=== PATIENT | male | born 1950 | race Two or more races ===

== ENCOUNTER 2017-10-14 07:38 | Day surgery (SDC) | payer BC ==
[~2017-10-14 07:38] MED LIST: CEFAZOLIN 2 GM/50 ML (PMX) 50 ML IVPB; SOD CHLORIDE 0.9% 1,000 ML IV
[2017-10-14 09:01] LABS: ADD MAN DIFF? NO
[2017-10-14 09:03] LABS: BASOPHILS % 0.3 % (0.0-2.0); EOSINOPHILS % 0.4 % (0.0-7.0); HEMATOCRIT 45.6 % (42.0-52.0); HEMOGLOBIN 15.5 g/dl (14.0-18.0); LYMPHOCYTES # 1.5 10^3/ul (0.8-2.9); LYMPHOCYTES % 22.2 % (15.0-51.0); MEAN CORPUSCULAR HEMOGLOBIN 29.5 pg (29.0-33.0); MEAN CORPUSCULAR VOLUME 86.7 fl (82.0-101.0); MEAN PLATELET VOLUME 8.8 fl (7.4-10.4); MONOCYTE # 0.4 10^3/ul (0.3-0.9); MONOCYTES % 6.5 % (0.0-11.0); NEUTROPHIL # 4.7 10^3/ul (1.6-7.5); NEUTROPHILS % 69.6 % (39.0-77.0); PLATELET COUNT 294 10^3/UL (140-415); RED BLOOD COUNT 5.26 10^6/ul (4.70-6.10)
[2017-10-14 09:03] LABS: WHITE BLOOD COUNT 6.8 10^3/ul (4.8-10.8)
[2017-10-14 09:21] LABS: ALANINE AMINOTRANSFERASE 39 IU/L (13-69); ALBUMIN 4.6 g/dl (3.3-4.9); ALBUMIN/GLOBULIN RATIO 1.48; ALKALINE PHOSPHATASE 68 IU/L (42-121); ANION GAP 16 (8-16); ASPARTATE AMINO TRANSFERASE 32 IU/L (15-46); BILIRUBIN,INDIRECT 0.5 mg/dl (0-1.1); BILIRUBIN,TOTAL 0.5 mg/dl (0.2-1.3); CARBON DIOXIDE 31 mmol/L (21-31); CHLORIDE 103 mmol/L (97-110); GLUCOSE 112 mg/dl (70-220); TOTAL PROTEIN 7.7 g/dl (6.1-8.1)
[2017-10-14 09:25] LABS: BLOOD UREA NITROGEN 19 mg/dl (7-20); CALCIUM 9.5 mg/dl (8.4-10.2); CREATININE 1.08 mg/dl (0.61-1.24); POTASSIUM 4.9 mmol/L (3.5-5.1)
[2017-10-14 09:26] LABS: SODIUM 145 mmol/L (135-144)
[2017-10-14 09:28] LABS: INR 0.95; PARTIAL THROMBOPLASTIN TIME 28.5 Sec (25.0-35.0); PROTIME 12.8 Sec (11.9-14.9)
[2017-10-14] MEDS ORDERED: FENTAnyl 50 MCG/ML VIAL (09:51)
[2017-10-14] MEDS ORDERED: CEFAZOLIN 1 GM INJ (09:52)
[2017-10-14] MEDS ORDERED: ROCURONIUM 50 MG INJ (09:52)
[2017-10-14] MEDS ORDERED: SUGAMMADEX SODIUM 200 MG/2 ML VIAL IV (09:52)
[2017-10-14] MEDS ORDERED: MIDAZOLAM 1 MG/ML 2 ML INJ (09:52)
[2017-10-14] MEDS ORDERED: PROPOFOL 20 ML (09:52)
[2017-10-14] MEDS ORDERED: ROPIVACAINE 0.5 % 30 ML VIAL (09:52)
[2017-10-14] MEDS ORDERED: MEPERIDINE 25 MG INJ IV (10:00)
[2017-10-14] MEDS ORDERED: LABETALOL HCL 20MG INJ IV (10:00)
[2017-10-14] MEDS ORDERED: METOCLOPRAMIDE 10 MG INJ IV (10:00)
[2017-10-14] MEDS ORDERED: DIPHENHYDRAMINE 50 MG INJ IV (10:00)
[2017-10-14] MEDS ORDERED: HYDROmorphONE (0.2 MG/ML) 10ML SYG IV ×3 (10:00)
[2017-10-14] MEDS ORDERED: FENTAnyl 50 MCG/ML VIAL IV ×3 (10:00)
[2017-10-14] MEDS ORDERED: hydrALAzine 20 MG INJ IV (10:00)
[2017-10-14] MEDS ORDERED: ONDANSETRON 4 MG INJ IV (10:00)
[2017-10-14] MEDS ORDERED: OXYCODONE/ACETAMINOPHEN (5/325) TAB PO ×2 (10:00)
[2017-10-14] MEDS ORDERED: EPHEDrine SULFATE 50 MG/5 ML SYG IV (10:00)
[2017-10-14] MEDS ORDERED: ONDANSETRON 4 MG INJ (11:48)
[2017-10-14] MEDS ORDERED: KETOROLAC 30 MG INJ (11:49)
[2017-10-14] MEDS ORDERED: DEXAMETHASONE 4 MG/ML 1 ML INJ (11:49)
[2017-10-14] MEDS: BUPIVACAINE 0.25% (MPF) 30 ML INJ (12:02)
[2017-10-14] MEDS: HYDROCODONE/APAP (5/325) TAB PO (12:18)
== END 2017-10-14 13:16 | disposition home or self-care (01) ==
LOC: SDS 07:38
DX: K43.6 Other and unspecified ventral hernia with obstruction, without gangrene (principal); E11.9 Type 2 diabetes mellitus without complications
CPT/HCPCS: 49653; 71045; 74018; 80053; 82962; 85025; 85610; 85730; 93005